=== PATIENT | male | born 1990 | race African-American/Black ===

== ENCOUNTER 2023-01-13 14:00 | Inpatient (IN) | payer OTHER ==
[2023-01-13 14:36] VITALS: BMI 30.7
[2023-01-13] MEDS ORDERED: DICYCLOMINE HCL 10 MG CAPSULE PO PRN (14:58)
[2023-01-13] MEDS ORDERED: BISMUTH SUBSALICYLATE 524 MG/30 ML PO PRN (14:58)
[2023-01-13] MEDS ORDERED: ONDANSETRON *ODT* 4 MG TABLET SL PRN (14:58)
[2023-01-13] MEDS ORDERED: ACETAMINOPHEN 325 MG TABLET (FP) PO PRN (14:58)
[2023-01-13] MEDS ORDERED: POLYETHYLENE GLYCOL (HEALTHYLAX) 3350 17 GM PACKET PO PRN (14:58)
[2023-01-13] MEDS ORDERED: guaiFENesin 600 MG TABLET.ER (FP) PO PRN (14:58)
[2023-01-13] MEDS ORDERED: MAG HYDROX/AL HYDROX/SIMETH 30 ML UNIT-DOSE CUP PO PRN (14:58)
[2023-01-13] MEDS ORDERED: LOPERAMIDE HCL 2 MG CAPSULE PO PRN (14:58)
[2023-01-13] MEDS ORDERED: IBUPROFEN 600 MG TABLET (FP) PO PRN (14:58)
[2023-01-13] MEDS ORDERED: MAGNESIUM HYDROX 2400MG/30ML ORAL SUSPENSION 30 ML CUP PO PRN (14:58)
[2023-01-13] MEDS ORDERED: BENZONATATE 200 MG CAPSULE PO PRN (14:58)
[2023-01-13] MEDS ORDERED: NALOXONE HCL (KLOXXADO) 8 MG SPRAY NS PRN (14:58)
[2023-01-13] MEDS ORDERED: BENZOCAINE/MENTHOL (CHLORASEPTIC ) LOZENGE MM PRN (14:58)
[2023-01-13] MEDS ORDERED: NALOXONE HCL 0.4 MG/ML VIAL IM PRN (14:58)
[2023-01-13] MEDS ORDERED: IBUPROFEN 400 MG TABLET (FP) PO PRN (14:58)
[2023-01-13] MEDS ORDERED: methaDONE HCL 10 MG TABLET (FOR DETOX USE ONLY) PO ONE (16:00)
[2023-01-13] MEDS ORDERED: methaDONE HCL 10 MG TABLET (FOR DETOX USE ONLY) ONE (17:33)
[2023-01-13] MEDS: MELATONIN 5 MG TABLETS PO SCH (22:19)
[2023-01-13] MEDS: hydrOXYzine PAMOATE 25 MG CAPSULE (FP) PO PRN (22:19)
[2023-01-13] MEDS: METHOCARBAMOL 500 MG TABLET PO PRN (22:19)
[2023-01-13] MEDS: THIAMINE HCL 100 MG TABLET (FP) PO SCH (22:19)
[2023-01-14] MEDS: PRENATAL VITAMINS W/ FOLIC ACID TABLET (FP) PO SCH (10:29)
[2023-01-14] MEDS: hydrOXYzine PAMOATE 25 MG CAPSULE (FP) PO PRN ×2 (10:29→21:57)
[2023-01-14] MEDS: METHOCARBAMOL 500 MG TABLET PO PRN (10:29)
[2023-01-14 11:25] LABS: HEMATOCRIT 40.9 % (35.4-49); HEMOGLOBIN 13.6 GM/dL (11.7-16.9); MCHC 33.3 g/dl (32.0-35.9); MEAN CELL VOLUME 84.1 fl (80-96); MEAN PLT VOLUME 8.6 fl (7.5-11.1); PLATELET COUNT 273 10^3/uL (134-434); RBC 4.86 M/mm3 (4.00-5.60); RDW 14.8 % (11.9-15.9); WHITE BLOOD COUNT 7.7 K/mm3 (4.0-10.0)
[2023-01-14 12:02] LABS: ALBUMIN 3.5 g/dl (3.4-5.0); BLOOD UREA NITROGEN 9.3 mg/dL (7-18); CALCIUM 9.2 mg/dL (8.5-10.1)
[2023-01-14 12:04] LABS: CREATININE 0.7 mg/dL (0.55-1.3)
[2023-01-14 12:06] LABS: BILIRUBIN,TOTAL 1.4 mg/dL (0.2-1); TOT PROT 6.8 g/dl (6.4-8.2)
[2023-01-14 12:34] LABS: HIV INTERPRETATION NEGATIVE (NEGATIVE)
[2023-01-14] MEDS: THIAMINE HCL 100 MG TABLET (FP) PO SCH (21:56)
[2023-01-14] MEDS: MELATONIN 5 MG TABLETS PO SCH (21:56)
[2023-01-15] MEDS ORDERED: methaDONE HCL 10 MG TABLET (FOR DETOX USE ONLY) PO ONE (10:00)
[2023-01-15] MEDS: hydrOXYzine PAMOATE 25 MG CAPSULE (FP) PO PRN ×3 (10:02→22:13)
[2023-01-15] MEDS: PRENATAL VITAMINS W/ FOLIC ACID TABLET (FP) PO SCH (10:02)
[2023-01-15] MEDS: METHOCARBAMOL 500 MG TABLET PO PRN ×2 (10:02→17:21)
[2023-01-15] MEDS: THIAMINE HCL 100 MG TABLET (FP) PO SCH (22:13)
[2023-01-15] MEDS: MELATONIN 5 MG TABLETS PO SCH (22:13)
[2023-01-16] MEDS: PRENATAL VITAMINS W/ FOLIC ACID TABLET (FP) PO SCH (10:09)
[2023-01-16] MEDS: METHOCARBAMOL 500 MG TABLET PO PRN ×2 (10:10→22:08)
[2023-01-16] MEDS: hydrOXYzine PAMOATE 25 MG CAPSULE (FP) PO PRN ×2 (10:10→22:08)
[2023-01-16] MEDS: MELATONIN 5 MG TABLETS PO SCH (22:08)
[2023-01-16] MEDS: THIAMINE HCL 100 MG TABLET (FP) PO SCH (22:08)
[2023-01-17] MEDS ORDERED: methaDONE HCL 10 MG TABLET (FOR DETOX USE ONLY) PO ONE (10:00)
[2023-01-17] MEDS: PRENATAL VITAMINS W/ FOLIC ACID TABLET (FP) PO SCH (10:16)
[2023-01-17] MEDS: METHOCARBAMOL 500 MG TABLET PO PRN ×2 (10:16→22:11)
[2023-01-17] MEDS: hydrOXYzine PAMOATE 25 MG CAPSULE (FP) PO PRN ×2 (10:17→22:11)
[2023-01-17 20:41] VITALS: RESP 18
[2023-01-17] MEDS: THIAMINE HCL 100 MG TABLET (FP) PO SCH (22:10)
[2023-01-17] MEDS: MELATONIN 5 MG TABLETS PO SCH (22:10)
[2023-01-18 09:13] VITALS: BP 142/80; PULSE 72; TEMP 98.1
[2023-01-18] MEDS: PRENATAL VITAMINS W/ FOLIC ACID TABLET (FP) PO SCH (10:39)
== END 2023-01-18 09:35 | disposition home or self-care (01) | DRG 773 ==
LOC: EDSEX 14:00 → YASAS 14:00 → Y6N 17:54
PROVIDERS: ADMIT Allergy & Immunology; ATTEND Surgery
PROC: HZ2ZZZZ Detoxification Services for Substance Abuse Treatment (ICD-10-PCS; principal; 2023-01-12)
DX: F11.23 Opioid dependence with withdrawal (principal); F16.20 Hallucinogen dependence, uncomplicated; F10.10 Alcohol abuse, uncomplicated; F12.20 Cannabis dependence, uncomplicated; F19.282 Other psychoactive substance dependence with psychoactive substance-induced sleep disorder; F32.A Depression, unspecified; Z87.891 Personal history of nicotine dependence
CPT/HCPCS: 36415; 80053; 82247; 85027; 86780; 86803; 87389; 93005; 93010; C9803-CS; U0003; U0005

== ENCOUNTER 2023-01-18 11:00 | Inpatient (IN) | payer OTHER ==
[2023-01-18 11:30] VITALS: BMI 29.8
[2023-01-18] MEDS ORDERED: NICOTINE POLACRILEX 4 MG GUM BUC PRN (12:47)
[2023-01-18] MEDS ORDERED: IBUPROFEN 400 MG TABLET (FP) PO PRN (12:47)
[2023-01-18] MEDS ORDERED: guaiFENesin 600 MG TABLET.ER (FP) PO PRN (12:47)
[2023-01-18] MEDS ORDERED: NALOXONE HCL (KLOXXADO) 8 MG SPRAY NS PRN (12:47)
[2023-01-18] MEDS ORDERED: IBUPROFEN 600 MG TABLET (FP) PO PRN (12:47)
[2023-01-18] MEDS ORDERED: ACETAMINOPHEN 325 MG TABLET (FP) PO PRN (12:47)
[2023-01-18] MEDS ORDERED: LOPERAMIDE HCL 2 MG CAPSULE PO PRN (12:47)
[2023-01-18] MEDS ORDERED: NALOXONE HCL 0.4 MG/ML VIAL IM PRN (12:47)
[2023-01-18] MEDS ORDERED: MAGNESIUM HYDROX 2400MG/30ML ORAL SUSPENSION 30 ML CUP PO PRN (12:47)
[2023-01-18] MEDS ORDERED: BENZOCAINE/MENTHOL (CHLORASEPTIC ) LOZENGE MM PRN (12:47)
[2023-01-18] MEDS ORDERED: NICOTINE 21 MG/24 HOURS TOPICAL PATCH TD PRN (12:47)
[2023-01-18] MEDS ORDERED: BENZONATATE 200 MG CAPSULE PO PRN (12:47)
[2023-01-18] MEDS ORDERED: NICOTINE 10 MG CARTRIDGE (INHALER) IH PRN (12:47)
[2023-01-18] MEDS ORDERED: POLYETHYLENE GLYCOL (HEALTHYLAX) 3350 17 GM PACKET PO PRN (12:47)
[2023-01-18] MEDS ORDERED: hydrOXYzine PAMOATE 25 MG CAPSULE (FP) PO PRN (12:47)
[2023-01-18] MEDS ORDERED: MAG HYDROX/AL HYDROX/SIMETH 30 ML UNIT-DOSE CUP PO PRN (12:47)
[2023-01-18] MEDS: THIAMINE HCL 100 MG TABLET (FP) PO SCH (21:12)
[2023-01-18] MEDS ORDERED: MELATONIN 5 MG TABLETS PO SCH (22:00)
[2023-01-19] MEDS: PRENATAL VITAMINS W/ FOLIC ACID TABLET (FP) PO SCH (09:41)
[2023-01-19] MEDS: MELATONIN 5 MG TABLETS PO SCH (21:09)
[2023-01-19] MEDS: THIAMINE HCL 100 MG TABLET (FP) PO SCH (21:09)
[2023-01-20] MEDS: PRENATAL VITAMINS W/ FOLIC ACID TABLET (FP) PO SCH (10:18)
[2023-01-20 11:18] LABS: EPI CELLS 4 /uL (0-25.1); HYALINE CASTS 0 /uL (0-3.1); PH,URINE 7.5 (5.0-8.0); URINE APPEARANCE CLEAR; URINE BACTERIA 32 /uL (0-1359); URINE BILIRUBIN NEGATIVE (NEGATIVE); URINE COLOR YELLOW; URINE GLUCOSE (UA) NEGATIVE (NEGATIVE); URINE KETONE NEGATIVE (NEGATIVE); URINE LEUK ESTERASE NEGATIVE (NEGATIVE); URINE NITRITE NEGATIVE (NEGATIVE); URINE PROTEIN 2+ (NEGATIVE); URINE RBC 8 /uL (0-23.9); URINE WBC 3 /uL (0-25.8)
[2023-01-20] MEDS: THIAMINE HCL 100 MG TABLET (FP) PO SCH (21:11)
[2023-01-20] MEDS: MELATONIN 5 MG TABLETS PO SCH (21:11)
[2023-01-21] MEDS: PRENATAL VITAMINS W/ FOLIC ACID TABLET (FP) PO SCH (10:36)
[2023-01-21] MEDS: MELATONIN 5 MG TABLETS PO SCH (21:07)
[2023-01-21] MEDS: THIAMINE HCL 100 MG TABLET (FP) PO SCH (21:07)
[2023-01-22] MEDS: PRENATAL VITAMINS W/ FOLIC ACID TABLET (FP) PO SCH (09:48)
[2023-01-22] MEDS: THIAMINE HCL 100 MG TABLET (FP) PO SCH (21:19)
[2023-01-22] MEDS: MELATONIN 5 MG TABLETS PO SCH (21:19)
[2023-01-23] MEDS: PRENATAL VITAMINS W/ FOLIC ACID TABLET (FP) PO SCH (09:36)
[2023-01-23] MEDS: THIAMINE HCL 100 MG TABLET (FP) PO SCH (21:20)
[2023-01-23] MEDS: MELATONIN 5 MG TABLETS PO SCH (21:20)
[2023-01-24] MEDS: PRENATAL VITAMINS W/ FOLIC ACID TABLET (FP) PO SCH (09:56)
[2023-01-24] MEDS: MELATONIN 5 MG TABLETS PO SCH (21:24)
[2023-01-24] MEDS: THIAMINE HCL 100 MG TABLET (FP) PO SCH (21:24)
[2023-01-25] MEDS: PRENATAL VITAMINS W/ FOLIC ACID TABLET (FP) PO SCH (09:50)
[2023-01-25] MEDS: MELATONIN 5 MG TABLETS PO SCH (21:15)
[2023-01-25] MEDS: THIAMINE HCL 100 MG TABLET (FP) PO SCH (21:15)
[2023-01-26] MEDS: PRENATAL VITAMINS W/ FOLIC ACID TABLET (FP) PO SCH (09:36)
[2023-01-26] MEDS: THIAMINE HCL 100 MG TABLET (FP) PO SCH (21:31)
[2023-01-26] MEDS: MELATONIN 5 MG TABLETS PO SCH (21:31)
[2023-01-27] MEDS: PRENATAL VITAMINS W/ FOLIC ACID TABLET (FP) PO SCH (10:04)
[2023-01-27] MEDS: MELATONIN 5 MG TABLETS PO SCH (21:16)
[2023-01-27] MEDS: THIAMINE HCL 100 MG TABLET (FP) PO SCH (21:16)
[2023-01-28] MEDS: PRENATAL VITAMINS W/ FOLIC ACID TABLET (FP) PO SCH (09:40)
[2023-01-28] MEDS: THIAMINE HCL 100 MG TABLET (FP) PO SCH (21:17)
[2023-01-28] MEDS: MELATONIN 5 MG TABLETS PO SCH (21:17)
[2023-01-29 06:59] VITALS: BP 120/72; PULSE 80; RESP 18; TEMP 97.4
[2023-01-29] MEDS: PRENATAL VITAMINS W/ FOLIC ACID TABLET (FP) PO SCH (09:59)
== END 2023-01-29 10:05 | disposition home or self-care (01) | DRG 772 ==
LOC: YASAS 11:00 → Y5N 18:19
PROVIDERS: ADMIT Allergy & Immunology; ATTEND Psychiatry & Neurology Pain Medicine
PROC: HZ42ZZZ Group Counseling for Substance Abuse Treatment, Cognitive-Behavioral (ICD-10-PCS; principal; 2023-01-18)
DX: F11.20 Opioid dependence, uncomplicated (principal); F10.20 Alcohol dependence, uncomplicated; F12.20 Cannabis dependence, uncomplicated; F16.10 Hallucinogen abuse, uncomplicated; F17.210 Nicotine dependence, cigarettes, uncomplicated; F19.282 Other psychoactive substance dependence with psychoactive substance-induced sleep disorder; F32.A Depression, unspecified; Z59.01 Sheltered homelessness
CPT/HCPCS: 81003

== ENCOUNTER 2023-12-10 18:53 | Inpatient (IN) | payer OTHER ==
[2023-12-10 19:36] VITALS: BMI 29.0
[2023-12-10] MEDS ORDERED: DICYCLOMINE HCL 10 MG CAPSULE PO PRN (20:51)
[2023-12-10] MEDS ORDERED: ACETAMINOPHEN 325 MG TABLET (FP) PO PRN (20:51)
[2023-12-10] MEDS ORDERED: MAGNESIUM HYDROX 2400MG/30ML ORAL SUSPENSION 30 ML CUP PO PRN (20:51)
[2023-12-10] MEDS ORDERED: LOPERAMIDE HCL 2 MG CAPSULE PO PRN (20:51)
[2023-12-10] MEDS ORDERED: NALOXONE HCL 0.4 MG/ML VIAL IM PRN (20:51)
[2023-12-10] MEDS ORDERED: POLYETHYLENE GLYCOL (HEALTHYLAX) 3350 17 GM PACKET PO PRN (20:51)
[2023-12-10] MEDS ORDERED: BISMUTH SUBSALICYLATE 524 MG/30 ML PO PRN (20:51)
[2023-12-10] MEDS ORDERED: ONDANSETRON *ODT* 4 MG TABLET SL PRN (20:51)
[2023-12-10] MEDS ORDERED: MAG HYDROX/AL HYDROX/SIMETH 30 ML UNIT-DOSE CUP PO PRN (20:51)
[2023-12-10] MEDS ORDERED: IBUPROFEN 400 MG TABLET (FP) PO PRN (20:51)
[2023-12-10] MEDS ORDERED: BENZONATATE 200 MG CAPSULE PO PRN (20:51)
[2023-12-10] MEDS ORDERED: guaiFENesin 600 MG TABLET.ER (FP) PO PRN (20:51)
[2023-12-10] MEDS ORDERED: NALOXONE HCL (KLOXXADO) 8 MG SPRAY NS PRN (20:51)
[2023-12-10] MEDS ORDERED: BENZOCAINE/MENTHOL (CHLORASEPTIC ) LOZENGE MM PRN (20:51)
[2023-12-10] MEDS: MELATONIN 5 MG TABLETS PO SCH (22:07)
[2023-12-10] MEDS: THIAMINE HCL 100 MG TABLET (FP) PO SCH (22:07)
[2023-12-11] MEDS: IBUPROFEN 600 MG TABLET (FP) PO PRN (06:33)
[2023-12-11] MEDS: hydrOXYzine PAMOATE 25 MG CAPSULE (FP) PO PRN (06:33)
[2023-12-11] MEDS: METHOCARBAMOL 500 MG TABLET PO PRN (06:33)
[2023-12-11] MEDS: cloNIDine HCL 0.1 MG TABLET PO ONE (08:20)
[2023-12-11] MEDS ORDERED: cloNIDine HCL 0.1 MG TABLET PO PRN (10:14)
[2023-12-11] MEDS: methaDONE HCL 10 MG TABLET (FOR DETOX USE ONLY) PO ONE (10:46)
[2023-12-11] MEDS: PRENATAL VITAMINS W/ FOLIC ACID TABLET (FP) PO SCH (10:46)
[2023-12-11 13:15] LABS: HEMOGLOBIN 13.2 GM/dL (11.7-16.9); MCH 27.3 pg (25.7-33.7); MCHC 32.2 g/dl (32.0-35.9); MEAN CELL VOLUME 84.8 fl (80-96); MEAN PLT VOLUME 8.5 fl (7.5-11.1); PLATELET COUNT 248 10^3/uL (134-434); RBC 4.84 M/mm3 (4.00-5.60); RDW 14.3 % (11.9-15.9); WHITE BLOOD COUNT 6.3 K/mm3 (4.0-10.0)
[2023-12-11 13:28] LABS: POTASSIUM 3.9 mmol/L (3.5-5.1)
[2023-12-11 13:32] LABS: CALCIUM 8.7 mg/dL (8.5-10.1)
[2023-12-11 13:33] LABS: ALBUMIN 2.9 g/dl (3.4-5.0)
[2023-12-11 13:37] LABS: TOT PROT 5.9 g/dl (6.4-8.2)
[2023-12-11 13:38] LABS: BILIRUBIN,TOTAL 0.3 mg/dL (0.2-1); BLOOD UREA NITROGEN 9.6 mg/dL (7-18); CREATININE 0.7 mg/dL (0.55-1.3)
[2023-12-13] MEDS: methaDONE HCL 10 MG TABLET (FOR DETOX USE ONLY) PO ONE (10:07)
[2023-12-15] MEDS: methaDONE HCL 10 MG TABLET (FOR DETOX USE ONLY) PO ONE (10:05)
[2023-12-16 12:55] VITALS: BP 133/89; PULSE 92; RESP 18; TEMP 96.6
== END 2023-12-16 14:21 | disposition other institution (70) | DRG 773 ==
LOC: YASAS 18:53 → Y3N 21:49
PROVIDERS: ADMIT Allergy & Immunology; ATTEND Surgery
PROC: HZ2ZZZZ Detoxification Services for Substance Abuse Treatment (ICD-10-PCS; principal; 2023-12-10)
DX: F11.23 Opioid dependence with withdrawal (principal); F14.20 Cocaine dependence, uncomplicated; F16.10 Hallucinogen abuse, uncomplicated; F12.20 Cannabis dependence, uncomplicated; F19.282 Other psychoactive substance dependence with psychoactive substance-induced sleep disorder; F17.210 Nicotine dependence, cigarettes, uncomplicated
CPT/HCPCS: 36415; 80053; 80305; 85027; 86780; 87635; 87811; 93005; 93010

== ENCOUNTER 2023-12-16 14:25 | Inpatient (IN) | payer OTHER ==
[2023-12-16] MEDS ORDERED: BENZONATATE 200 MG CAPSULE PO PRN (15:12)
[2023-12-16] MEDS ORDERED: NICOTINE POLACRILEX 4 MG LOZENGE BC PRN (15:12)
[2023-12-16] MEDS ORDERED: ACETAMINOPHEN 325 MG TABLET (FP) PO PRN (15:12)
[2023-12-16] MEDS ORDERED: NALOXONE HCL (KLOXXADO) 8 MG SPRAY NS PRN (15:12)
[2023-12-16] MEDS ORDERED: MAGNESIUM HYDROX 2400MG/30ML ORAL SUSPENSION 30 ML CUP PO PRN (15:12)
[2023-12-16] MEDS ORDERED: NALOXONE HCL 0.4 MG/ML VIAL IVPUSH PRN (15:12)
[2023-12-16] MEDS ORDERED: MAG HYDROX/AL HYDROX/SIMETH 30 ML UNIT-DOSE CUP PO PRN (15:12)
[2023-12-16] MEDS ORDERED: IBUPROFEN 400 MG TABLET (FP) PO PRN (15:12)
[2023-12-16] MEDS ORDERED: LOPERAMIDE HCL 2 MG CAPSULE PO PRN (15:12)
[2023-12-16] MEDS ORDERED: hydrOXYzine PAMOATE 25 MG CAPSULE (FP) PO PRN (15:12)
[2023-12-16] MEDS ORDERED: BENZOCAINE/MENTHOL (CHLORASEPTIC ) LOZENGE MM PRN (15:12)
[2023-12-16] MEDS ORDERED: guaiFENesin 600 MG TABLET.ER (FP) PO PRN (15:12)
[2023-12-16] MEDS ORDERED: NICOTINE POLACRILEX 4 MG GUM BUC PRN (15:12)
[2023-12-16] MEDS ORDERED: POLYETHYLENE GLYCOL (HEALTHYLAX) 3350 17 GM PACKET PO PRN (15:12)
[2023-12-16] MEDS ORDERED: IBUPROFEN 600 MG TABLET (FP) PO PRN (15:12)
[2023-12-16] MEDS: MELATONIN 5 MG TABLETS PO SCH (21:24)
[2023-12-16] MEDS: THIAMINE HCL 100 MG TABLET (FP) PO SCH (21:24)
[2023-12-17] MEDS: PRENATAL VITAMINS W/ FOLIC ACID TABLET (FP) PO SCH (10:29)
[2023-12-17] MEDS: NICOTINE 7 MG/24 HOURS TOPICAL PATCH TD SCH (10:29)
[2023-12-17 13:45] LABS: HIV INTERPRETATION NEGATIVE (NEGATIVE)
[2023-12-18 07:11] VITALS: RESP 17; TEMP 97.8
[2023-12-18] MEDS: METHOCARBAMOL 500 MG TABLET PO PRN (21:24)
[2023-12-19 06:43] VITALS: BP 119/87; PULSE 69
== END 2023-12-19 09:06 | disposition left against medical advice (07) | DRG 770 ==
LOC: YASAS 14:25 → Y3W 14:26
PROVIDERS: ADMIT Allergy & Immunology; ATTEND Psychiatry & Neurology Pain Medicine
PROC: HZ42ZZZ Group Counseling for Substance Abuse Treatment, Cognitive-Behavioral (ICD-10-PCS; principal; 2023-12-16)
DX: F11.20 Opioid dependence, uncomplicated (principal); F14.20 Cocaine dependence, uncomplicated; F12.20 Cannabis dependence, uncomplicated
CPT/HCPCS: 36415; 87389

== ENCOUNTER 2025-04-05 15:27 | Inpatient (IN) | payer OTHER ==
[2025-04-05] MEDS ORDERED: NICOTINE POLACRILEX 4 MG GUM BUC PRN (16:13)
[2025-04-05] MEDS ORDERED: LOPERAMIDE HCL 2 MG CAPSULE PO PRN (16:13)
[2025-04-05] MEDS ORDERED: BENZOCAINE/MENTHOL (CHLORASEPTIC ) LOZENGE MM PRN (16:13)
[2025-04-05] MEDS ORDERED: IBUPROFEN 400 MG TABLET (FP) PO PRN (16:13)
[2025-04-05] MEDS ORDERED: hydrOXYzine PAMOATE 25 MG CAPSULE (FP) PO PRN (16:13)
[2025-04-05] MEDS ORDERED: IBUPROFEN 600 MG TABLET (FP) PO PRN (16:13)
[2025-04-05] MEDS ORDERED: NALOXONE (NARCAN) HCL 4 MG/0.1 ML SPRAY NS PRN (16:13)
[2025-04-05] MEDS ORDERED: ACETAMINOPHEN 325 MG TABLET (FP) PO PRN (16:13)
[2025-04-05] MEDS ORDERED: NALOXONE HCL 0.4 MG/ML VIAL IVPUSH PRN (16:13)
[2025-04-05] MEDS ORDERED: POLYETHYLENE GLYCOL (HEALTHYLAX) 3350 17 GM PACKET PO PRN (16:13)
[2025-04-05] MEDS ORDERED: guaiFENesin 600 MG TABLET.ER (FP) PO PRN (16:13)
[2025-04-05] MEDS ORDERED: MAGNESIUM HYDROX 2400MG/30ML ORAL SUSPENSION 30 ML CUP PO PRN (16:13)
[2025-04-05] MEDS ORDERED: BENZONATATE 200 MG CAPSULE PO PRN (16:13)
[2025-04-05] MEDS ORDERED: NICOTINE POLACRILEX 4 MG LOZENGE BC PRN (16:13)
[2025-04-05] MEDS ORDERED: MAG HYDROX/AL HYDROX/SIMETH 30 ML UNIT-DOSE CUP PO PRN (16:13)
[2025-04-05] MEDS: THIAMINE 100 MG TABLET PO SCH (21:26)
[2025-04-05] MEDS: MELATONIN 5 MG TABLETS PO SCH (21:26)
[2025-04-05] MEDS: QUEtiapine FUMARATE 100 MG TABLET (FP) PO SCH (21:26)
[2025-04-06] MEDS: PRENATAL VITAMINS W/ FOLIC ACID TABLET (FP) PO SCH (10:53)
[2025-04-06] MEDS: METHOCARBAMOL 500 MG TABLET PO PRN (21:22)
[2025-04-07] MEDS: NICOTINE 21 MG/24 HOURS TOPICAL PATCH TD PRN (09:54)
[2025-04-09 06:23] VITALS: RESP 16
[2025-04-19 05:46] VITALS: BP 114/77; PULSE 82; TEMP 97.5
== END 2025-04-19 10:17 | disposition home or self-care (01) | DRG 772 ==
LOC: YASAS 15:27 → Y3W 15:29
PROVIDERS: ADMIT Psychiatry & Neurology Pain Medicine; ATTEND Psychiatry & Neurology Pain Medicine
PROC: HZ42ZZZ Group Counseling for Substance Abuse Treatment, Cognitive-Behavioral (ICD-10-PCS; principal; 2025-04-05)
DX: F11.20 Opioid dependence, uncomplicated (principal); F14.20 Cocaine dependence, uncomplicated; F17.210 Nicotine dependence, cigarettes, uncomplicated; F31.9 Bipolar disorder, unspecified; F19.282 Other psychoactive substance dependence with psychoactive substance-induced sleep disorder; G47.00 Insomnia, unspecified